=== PATIENT | female | born 1940 | race Caucasian/White ===

== ENCOUNTER → 2016-08-23 | Outpatient (CLI) | payer MEDICARE, OTHER | LOC: CT 09:00 → OPSV 09:26 → CT 09:26 | DX: Z45.89 Encounter for adjustment and management of other implanted devices (principal); C78.6 Secondary malignant neoplasm of retroperitoneum and peritoneum; C78.5 Secondary malignant neoplasm of large intestine and rectum; C79.82 Secondary malignant neoplasm of genital organs; E86.0 Dehydration | CPT/HCPCS: 71260; 96360; J1642; J7030; J7050; Q9962 ==